=== PATIENT | male | born 1995 | race Two or more races ===

== ENCOUNTER 2018-08-28 07:37 | Emergency (ER) | payer BC ==
[~2018-08-28] VITALS: Ht 180.3 cm; Wt 69.4 kg
[2018-08-28] MEDS ORDERED: NKM (07:47)
[2018-08-28 07:49] VITALS: BP 122/84
--- NOTE | 2018-08-28 07:51 | NUR ---
ED Nurse Note: pt walked in due to left wrist deformity and swelling and pain. pt stated he was skateboarding yesterday and fell on his left wrist,. pt denies head trauma. ice pack placed on pt left wrist. will continue to monitor
--- NOTE | 2018-08-28 08:02 | NUR ---
ED Nurse Note: pt was seen by bruce, pt medicated as ordered, pt able to tolerate po meds. will continue to monitor.
--- NOTE | 2018-08-28 08:12 | NUR ---
ED Nurse Note: plumbing service technician on bedside
--- NOTE | 2018-08-28 08:28 | NUR ---
ER DISCHARGE NOTE: Patient is cleared to be discharged per ERMD, pt is aox4, on room air, with stable vital signs. pt was given dc and prescription instructions, pt was able to verbalize understanding, pt id band removed without complications. pt is able to ambulate with steady gait. pt took all belongings.
--- NOTE | 2018-08-28 08:32 | Emergency Room Report ---
History of Present Illness General Chief Complaint: Upper Extremity Injury Source: Patient Present Illness HPI Patient presents with complaints of left wrist pain reports that at 6:00pm yesterday he had a fall off of his skateboard Putting his left hand and outstretched fashion Pain has continued and presents for further evaluation denies any elbow pain denies any shoulder pain Denies any other trauma pain is 7 out of 10 localized to the wrist patient is right-hand dominant He reports previous fracture in that area Allergies: Coded Allergies: No Known Allergies (Unverified , 08/28/18) Patient History Past Medical History: see triage record Pertinent Family History: none Reviewed Nursing Documentation: PMH: Agreed; PSxH: Agreed Nursing Documentation-PMH Past Medical History: No Stated History Review of Systems All Other Systems: negative except mentioned in HPI Physical Exam Vital Signs Date Time Temp Pulse Resp B/P (MAP) Pulse Ox O2 Delivery O2 Flow Rate FiO2 08/28/18 07:40 98.2 106 17 122/84 (97) 97 Room Air Sp02 EP Interpretation: reviewed, normal General Appearance: mild distress - In pain Head: normocephalic, atraumatic Eyes: bilateral eye PERRL, bilateral eye EOMI ENT: hearing grossly normal, normal pharynx Neck: supple Respiratory: lungs clear Cardiovascular #1: regular rate, rhythm Gastrointestinal: non tender, soft Musculoskeletal: other - Tender on palpation of the radial aspect midpoint dorsal wrist left hand Neurologic: alert, oriented x3, responsive Skin: no rash - No swelling Lymphatic: no adenopathy Procedures Splinting Splinting : Consent: Verbal Location: Left wrist Splint: volar Pre-Proc Neuro Vasc Exam: normal Post-Proc Neuro Vasc Exam: normal Patient Tolerated: Well Complications: None Medical Decision Making Diagnostic Impression: Primary Impression: Wrist sprain ER Course Given the history and exam x-rays are obtained There is a questionable lucency at the scaphoid area no other obvious acute pathology is seen patient does have previous ulnar styloid fracture as well given the patient's discomfort and presentation Splint is applied Patient will require close outpatient follow-up for repeat imaging and evaluation as this is a significant bone in the wrist and requires appropriate follow-up Other X-Ray Diagnostic Results Other X-Ray Diagnostic Results : X-Ray ordered: Left wrist # of Views/Limited Vs Complete: 3 View Indication: Pain EP Interpretation: Yes Interpretation: no dislocation, no soft tissue swelling, other - Questionable lucency in the scaphoid bone, previous ulnar styloid fracture Impression: Other - Questionable scaphoid lucency Electronically Signed by: Christina Small DO Last Vital Signs Date Time Temp Pulse Resp B/P (MAP) Pulse Ox O2 Delivery O2 Flow Rate FiO2 08/28/18 07:49 98.2 106 17 122/84 97 Room Air Status: improved Disposition: HOME, SELF-CARE Condition: Improved Scripts Acetaminophen With Codeine (T#3) (TYLENOL #3 TAB*) Y Tab 1 TAB ORAL Q8H PRN for For Pain, #7 TAB Prov: Christina Small DO 08/28/18 Ibuprofen* (MOTRIN*) 600 Mg Tablet 600 MG ORAL Q8H PRN for For Pain, #20 TAB 0 Refills Prov: Christina Small DO 08/28/18 Referrals: NON PHYSICIAN (PCP) Additional Instructions: Patient is provided with the discharge instructions notified to follow up with primary doctor in the next 2-3 days otherwise return to the er with any worsening symptoms. Please note that this report is being documented using TelePharm technology. This can lead to erroneous entry secondary to incorrect interpretation by the dictating instrument. Christina Small DO Aug 28, 2018 08:32
[2018-08-28] MEDS ORDERED: IBUPROFEN600 MG ORAL (08:37)
[2018-08-28] MEDS ORDERED: ACETAMINOPHEN-1 EAC1 ORAL (08:37)
[2018-08-28 08:42] VITALS: BP 122/84
--- NOTE | 2018-08-29 17:17 | Diagnostic Imaging Report ---
Clinical Indication:Trauma, left wrist pain Technique: 3 views of the left wrist Comparison: None Findings: No definite acute fractures. No dislocations. The ulnar styloid is ununited. This may reflect prior trauma or developmental variant. Impression: No acute process This essentially agrees with the preliminary interpretation provided by the emergency room physician
== END 2018-08-28 08:42 | disposition home or self-care (01) ==
LOC: EMR 07:51
DX: S63.502A Unspecified sprain of left wrist, initial encounter (principal); V00.131A Fall from skateboard, initial encounter; Y93.79 Activity, other specified sports and athletics; Y92.9 Unspecified place or not applicable
CPT/HCPCS: 29125; 99283

== ENCOUNTER 2018-10-12 20:45 | Emergency (ER) | payer BC ==
[~2018-10-12] VITALS: Ht 170.2 cm; Wt 63.5 kg
[~2018-10-12 20:45] MED LIST: ACETAMINOPHEN-1 EAC1 ORAL; IBUPROFEN600 MG ORAL; NKM
--- NOTE | 2018-10-12 20:45 | NUR ---
ED Nurse Note: Patient was BIBA from home due to SI. Per paramedics patient was calling the people and saying that he does not want to be here, that he wants to kill himself. Patient presented anxious, resstless, with hands cuffs on, accompany by [employer]. AAO x4, VSS at this time, skin is dry warm to touch. Patient has bump on his forhead, sad that hit his head over the wall.
--- NOTE | 2018-10-12 20:46 | NUR ---
ED Nurse Note: Safety check, and suiside precautions were met.
--- NOTE | 2018-10-12 20:46 | NUR ---
ED Nurse Note: Patient was undressed, placed in the gown. All belongings were placed in locker #2.
--- NOTE | 2018-10-12 20:47 | NUR ---
ED Nurse Note: Patient was placed on 5150 hold by [employer].
--- NOTE | 2018-10-12 20:48 | NUR ---
ED Nurse Note: Sarah requested.
[2018-10-12 20:55] VITALS: BP 138/84
--- NOTE | 2018-10-12 21:04 | Emergency Room Report ---
History of Present Illness General Chief Complaint: Behavioral Complaint Source: Patient Present Illness HPI Patient is a 23-year-old male brought in by EMS with [employer] after reported self injury. Patient had reportedly been feeling increasingly sad regarding recent break-up with his girlfriend. He reports punching a wall as well as striking his head against a fixed object during transport. Patient reports having recent alcohol intake. He denies any prior suicidal thoughts. He denies any prior history of psychiatric disease. He states that he has never attempted to harm himself in the past. Allergies: Coded Allergies: No Known Allergies (Unverified , 08/28/18) Patient History Past Medical History: see triage record Reviewed Nursing Documentation: PMH: Agreed; PSxH: Agreed Nursing Documentation-PMH Past Medical History: No Stated History Review of Systems All Other Systems: negative except mentioned in HPI Physical Exam Vital Signs Date Time Temp Pulse Resp B/P (MAP) Pulse Ox O2 Delivery O2 Flow Rate FiO2 10/12/18 20:40 98.2 98 18 138/84 (102) 98 Room Air Sp02 EP Interpretation: reviewed, normal General Appearance: normal inspection, well appearing, no apparent distress, alert, GCS 15, non-toxic Head: other - forehead soft tissue swelling, abrasion ENT: normal ENT inspection, hearing grossly normal, normal voice Neck: normal inspection, full range of motion, supple, no bony tend Respiratory: normal inspection, lungs clear, normal breath sounds, no respiratory distress, no retraction, no wheezing Cardiovascular #1: regular rate, rhythm, no edema Gastrointestinal: normal inspection, normal bowel sounds, non tender, soft, no guarding, no hernia Genitourinary: no CVA tenderness Musculoskeletal: normal inspection, back normal, normal range of motion, other - right hand swelling Neurologic: normal inspection, alert, oriented x3, responsive, hoisting engine operator III-XII nml as tested - you because they were planning on taking him over there so if he was accepted there is a we still probably have to clear him, speech normal Psychiatric: normal inspection, judgement/insight normal, mood/affect normal Skin: other - right hand abrasion Medical Decision Making Diagnostic Impression: Primary Impression: Depression Additional Impressions: Substance abuse Alcohol intoxication ER Course Patient presented for self injury. Differential diagnosis include is not limited to depression, alcohol intoxication, substance abuse, among others. Patient was noted to have been placed on a psychiatric hold. Patient was noted to be awake and alert. Patient appears to be stable for psychiatric placement. Patient does not appear to require CT imaging at this time. Patient's blood alcohol was noted to be minimally elevated. Patient's urine drug screen was positive for cocaine.Patient is medically cleared for psychiatric placement. Sitter was ordered. Patient was endorsed to Dr. Small pending placement at 6:30 AM. Labs Test 10/12/18 21:30 10/12/18 21:55 White Blood Count 13.0 K/UL (4.8-10.8) Red Blood Count 5.13 M/UL (4.70-6.10) Hemoglobin 16.5 G/DL (14.2-18.0) Hematocrit 44.6 % (42.0-52.0) Mean Corpuscular Volume 87 FL (80-99) Mean Corpuscular Hemoglobin 32.3 PG (27.0-31.0) Mean Corpuscular Hemoglobin Concent 37.1 G/DL (32.0-36.0) Red Cell Distribution Width 10.4 % (11.6-14.8) Platelet Count 289 K/UL (150-450) Mean Platelet Volume 5.4 FL (6.5-10.1) Neutrophils (%) (Auto) 72.1 % (45.0-75.0) Lymphocytes (%) (Auto) 21.5 % (20.0-45.0) Monocytes (%) (Auto) 5.1 % (1.0-10.0) Eosinophils (%) (Auto) 0.0 % (0.0-3.0) Basophils (%) (Auto) 1.3 % (0.0-2.0) Sodium Level 142 MMOL/L (136-145) Potassium Level 3.3 MMOL/L (3.5-5.1) Chloride Level 105 MMOL/L (98-107) Carbon Dioxide Level 26 MMOL/L (21-32) Anion Gap 11 mmol/L (5-15) Blood Urea Nitrogen 4 mg/dL (7-18) Creatinine 1.0 MG/DL (0.55-1.30) Estimat Glomerular Filtration Rate > 60 mL/min (>60) Glucose Level 78 MG/DL (74-106) Calcium Level 9.1 MG/DL (8.5-10.1) Total Bilirubin 0.9 MG/DL (0.2-1.0) Aspartate Amino Transf (AST/SGOT) 22 U/L (15-37) Alanine Aminotransferase (ALT/SGPT) 21 U/L (12-78) Alkaline Phosphatase 60 U/L (46-116) Total Protein 7.9 G/DL (6.4-8.2) Albumin 4.5 G/DL (3.4-5.0) Globulin 3.4 g/dL Albumin/Globulin Ratio 1.3 (1.0-2.7) Salicylates Level 3.0 ug/mL (2.8-20) Acetaminophen Level < 2 MCG/ML (10-30) Serum Alcohol 127 mg/dL Urine Color Pale yellow Urine Appearance Slightly cloudy Urine pH 8 (4.5-8.0) Urine Specific [place] 1.015 (1.005-1.035) Urine Protein Negative (NEGATIVE) Urine Glucose (UA) Negative (NEGATIVE) Urine Ketones Negative (NEGATIVE) Urine Blood 1+ (NEGATIVE) Urine Nitrite Negative (NEGATIVE) Urine Bilirubin Negative (NEGATIVE) Urine Urobilinogen Normal MG/DL (0.0-1.0) Urine Leukocyte Esterase Negative (NEGATIVE) Urine RBC 0-2 /HPF (0 - 0) Urine WBC 0 /HPF (0 - 0) Urine Squamous Epithelial Cells None /LPF (NONE/OCC) Urine Amorphous Sediment Moderate /LPF (NONE) Urine Bacteria Few /HPF (NONE) Urine Opiates Screen Negative (NEGATIVE) Urine Barbiturates Screen Negative (NEGATIVE) Phencyclidine (PCP) Screen Negative (NEGATIVE) Urine Amphetamines Screen Negative (NEGATIVE) Urine Benzodiazepines Screen Negative (NEGATIVE) Urine Cocaine Screen Positive (NEGATIVE) Urine Marijuana (THC) Screen Positive (NEGATIVE) Last Vital Signs Date Time Temp Pulse Resp B/P (MAP) Pulse Ox O2 Delivery O2 Flow Rate FiO2 10/12/18 20:40 98.2 98 18 138/84 (102) 98 Room Air Status: improved Disposition: ELOPED Condition: Stable Luis Sharpe MD Oct 12, 2018 21:04
--- NOTE | 2018-10-12 21:10 | NUR ---
ED Nurse Note: [place] and juice were provided.
[2018-10-12 21:44] LABS: BASOPHILS % (AUTO) 1.3 % (0.0-2.0); HEMATOCRIT 44.6 % (42.0-52.0); HEMOGLOBIN 16.5 G/DL (14.2-18.0); LYMPHOCYTES % (AUTO) 21.5 % (20.0-45.0); MEAN CORPUSCULAR VOLUME 87 FL (80-99); MONOCYTES % (AUTO) 5.1 % (1.0-10.0); NEUTROPHILS % (AUTO) 72.1 % (45.0-75.0); PLATELET COUNT 289 K/UL (150-450); RED BLOOD COUNT 5.13 M/UL (4.70-6.10); RED CELL DISTRIBUTION WIDTH 10.4 % (11.6-14.8)
[2018-10-12 21:51] LABS: ANION GAP 11 mmol/L (5-15); BLOOD UREA NITROGEN 4 mg/dL (7-18); CALCIUM 9.1 MG/DL (8.5-10.1); CARBON DIOXIDE 26 MMOL/L (21-32); CHLORIDE 105 MMOL/L (98-107); POTASSIUM 3.3 MMOL/L (3.5-5.1); SODIUM 142 MMOL/L (136-145)
[2018-10-12 21:55] LABS: ALANINE AMINOTRANSFERASE 21 U/L (12-78); ALBUMIN 4.5 G/DL (3.4-5.0); ALBUMIN/GLOBULIN RATIO 1.3 (1.0-2.7); ALKALINE PHOSPHATASE 60 U/L (46-116); ASPARTATE AMINO TRANSFERASE 22 U/L (15-37); BILIRUBIN,TOTAL 0.9 MG/DL (0.2-1.0)
[2018-10-12 22:27] LABS: APPEARANCE,URINE SLIGHTLY CLOUDY; BILIRUBIN, URINE NEGATIVE (NEGATIVE); COLOR,URINE PALE YELLOW; GLUCOSE, URINE (UA) NEGATIVE (NEGATIVE); KETONES,URINE NEGATIVE (NEGATIVE); LEUKOCYTE ESTERASE ,URINE NEGATIVE (NEGATIVE); NITRITE,URINE NEGATIVE (NEGATIVE); PH,URINE 8 (4.5-8.0); PROTEIN,URINE NEGATIVE (NEGATIVE); UROBILINOGEN,URINE NORMAL MG/DL (0.0-1.0)
[2018-10-12] MEDS ORDERED: LORazepam Inj 2mg/ml 1ml IM ONE (23:15)
[2018-10-13 00:54] VITALS: BP 128/78
--- NOTE | 2018-10-13 02:18 | NUR ---
ED Nurse Note: Patient is in the bed sleeping, VSS at this time, no acute disstress noticed.
--- NOTE | 2018-10-13 02:40 | NUR ---
ED Nurse Note: Patient refused chest X-ray.
[2018-10-13 03:51] VITALS: BP 108/68
--- NOTE | 2018-10-13 05:09 | NUR ---
ED Nurse Note: Patient is in the bed sleeping, VSS at this time, no acute disstress noticed.
--- NOTE | 2018-10-13 06:42 | NUR ---
ED Nurse Note: May (mom) Addendum: 10/13/18 at 0644 by AYUSH ED Nurse Note: spoke with pt.'s mom and gave updates to the patient
--- NOTE | 2018-10-13 06:56 | NUR ---
HAND-OFF: Report given to MATILDE Monge.
[2018-10-13 07:10] VITALS: BP 115/70
--- NOTE | 2018-10-13 07:10 | NUR ---
ED Nurse Note: Patient at no distress at this time, patient is awake and was provided orange juice, sitter at bedside
[2018-10-13 09:50] VITALS: BP 115/70
--- NOTE | 2018-10-13 09:50 | NUR ---
ELOPEMENT: Patient eloped from ED at 0950 after making a call to his mother. patient's mom was notified as well as [employer].
--- NOTE | 2018-10-13 09:50 | NUR ---
ED Nurse Note: Patient walked to the bathroom and made a phone call while at the nursing station, after call, patient was asked to return to room however left through the ambulance door. Primary nurse was at nursing station, patient left the hospital wearing gown with an IV intact. PD notified. attempted to follow patient out however was out of sight. Security notified Addendum: 10/13/18 at 1020 by ANNAMARIE Amendment undone in EDM - 10/13/18 at 1020 by [email or web address] ED Nurse Note: Patient walked to the bathroom and made a phone call while at the nursing station, after call, patient was asked to return to room however left through the ambulance door. Primary nurse was at nursing station, patient left the hospital wearing gown with an IV intact. PD notified. attempted to follow patient out however was out of sight. Security notified and Charge nurse notified
== END 2018-10-13 09:50 | disposition left against medical advice (07) ==
LOC: EDBD 20:45 → EMR 21:40
DX: F32.9 Major depressive disorder, single episode, unspecified (principal); F10.129 Alcohol abuse with intoxication, unspecified; F14.10 Cocaine abuse, uncomplicated; Y90.6 Blood alcohol level of 120-199 mg/100 ml
CPT/HCPCS: 36415; 80053; 80307; 81003; 85025; 96372; 99283; G0480; 80329